=== PATIENT | male | born 1985 | race Caucasian/White ===

== ENCOUNTER 2018-03-06 15:10 | Emergency (ER) | payer BC ==
[~2018-03-06] VITALS: Ht 180.3 cm; Wt 77.1 kg
[2018-03-06] MEDS ORDERED: PREDNISONE10 MG PO (15:27)
[2018-03-06] MEDS ORDERED: CHLORZOXAZONE500 M2 PO (15:27)
== END 2018-03-06 16:25 | disposition home or self-care (01) ==
LOC: ED
DX: R07.89 Other chest pain (principal); Z98.890 Other specified postprocedural states; X50.1XXA Overexertion from prolonged static or awkward postures, initial encounter; Y93.89 Activity, other specified; Y92.89 Other specified places as the place of occurrence of the external cause; Y99.9 Unspecified external cause status

== ENCOUNTER → 2020-10-12 | Outpatient (CLI) | payer BC ==
[~2020-10-12] MED LIST: CHLORZOXAZONE500 M2 PO; PREDNISONE10 MG PO
== END | disposition home or self-care (01) ==
LOC: CARD 15:54
DX: F90.0 Attention-deficit hyperactivity disorder, predominantly inattentive type (principal)

== ENCOUNTER → 2024-10-08 | Outpatient (CLI) | payer BC ==
[2024-10-08 16:36] LABS: BASO # 0.1 10*3/uL (0.0-0.1); BASO % 1.1 % (0.0-1.0); EOS # 0.1 10*3/uL (0.0-0.4); EOS % 1.4 % (1.0-4.0); MEAN CELL VOLUME 85.8 fl (80.0-94.0); MEAN PLATELET VOLUME 9.3 fl (9.6-12.3); MONO # 0.4 10*3/uL (0.1-1.0); MONO % 6.5 % (3.0-9.0); NEUT # 3.7 10*3/uL (2.3-7.9); NEUT % 55.5 % (47.0-73.0); PLATELET COUNT AUTOMATED 250 10*3/uL (130-400); RED BLOOD COUNT 5.36 10*6/uL (4.50-5.90); RED CELL DISTRI WIDTH 12.6 % (0-14.5); WHITE BLOOD COUNT 6.6 10*3/uL (4.8-10.8)
[2024-10-08 17:34] LABS: ALKALINE PHOSPHATASE 77 U/L (46-116); BUN 14 mg/dl (9-23); CHLORIDE 103 mmol/L (98-107); CHOLESTEROL 209 mg/dL (<200); LDL CHOLESTEROL 149 mg/dL (9-159); POTASSIUM 3.7 mmol/L (3.4-5.1); SGPT/ALT 27 U/L (5-49); TOTAL PROTEIN 7.6 gm/dL (6.0-8.0); TRIGLYCERIDES 69 mg/dl (<150)
== END | disposition home or self-care (01) ==
LOC: LAB 16:15
PROVIDERS: ATTEND Physician Assistant
DX: Z51.81 Encounter for therapeutic drug level monitoring (principal); F90.0 Attention-deficit hyperactivity disorder, predominantly inattentive type; Z79.899 Other long term (current) drug therapy